=== PATIENT | female | born 1965 | race Caucasian/White ===

== ENCOUNTER 2017-04-14 14:59 | Emergency (ER) | payer BC ==
[2017-04-14 15:31] LABS: #Eosinphils 0.1 thou/uL (0.0-0.7); #Lymphocytes 1.7 thou/uL (1.20-3.40); #Monocytes 0.8 thou/uL (0.11-0.59); #Neutrophils 6.7 thou/uL (1.40-6.50); %Basophils 0.2 % (0.0-1.0); %Eosinophils 1.5 % (0.0-10.0); %Lymphocytes 18.5 % (21.0-51.0); %Monocytes 8.4 % (0.0-10.0); Hematocrit 39.6 % (36.0-47.0); Mean Platelet Volume 6.3 fL (7.4-10.4); Red Blood Cell (RBC) Count 3.94 mill/uL (4.20-5.40); White Blood Cell (WBC) Count 9.4 thou/uL (4.8-10.8)
[2017-04-14] MEDS ORDERED: ISOVUE-370 76%-LOCM 1 ML ONE (15:45)
[2017-04-14 15:55] LABS: Troponin I Less than 0.010 ng/mL (< 0.028)
[2017-04-14 15:56] LABS: ALT (SGPT) 19 U/L (8-55); AST (SGOT) 11 U/L (5-34); Alkaline Phosphatase 144 U/L (40-150); Anion Gap 13 mmol/L (10-20); BUN (Urea Nitrogen) 10 mg/dL (9.8-20.1); Bilirubin, Total 0.3 mg/dL (0.2-1.2); CK (CPK) 83 U/L (29-168); Calc. Creatinine Clearance 0 mL/min (70-130); Calcium 8.9 mg/dL (7.8-10.44); Carbon Dioxide 25 mmol/L (22-29); Chloride 105 mmol/L (98-107); Estimated GFR-MDRD 78; Globulin 3.1 g/dL (2.4-3.5); Protein, Total 6.7 g/dL (6.0-8.3)
--- NOTE | 2017-04-14 15:57 | CT ---
CT ANGIOGRAM THORAX WITH IV CONTRAST AND 3D RECONSTRUCTIONS: DATE: 04/14/17. HISTORY: Dyspnea. Cough for the past couple of weeks with swelling to the right upper extremity. History of PE last January. COMPARISON: 08/24/16. FINDINGS: No filling defects are seen in the pulmonary arteries. Thoracic aorta is normal in caliber without evidence of an aortic dissection. Lungs are clear. Right adrenal mass is again partially imaged and stable in size or appearance. Surgical clips are again seen in the right axilla as well as right breast most likely related to pos t lumpectomy changes in the right breast. There has been no interval change from prior study. IMPRESSION: 1. No CT evidence of a pulmonary embolus. 2. Stable right adrenal lesion which demonstrates attenuation coefficient suggestive of an adrenal adenoma. POS: [facility]
--- NOTE | 2017-04-14 16:42 | ULT ---
RIGHT UPPER EXTREMITY DOPPLER VENOUS ULTRASOUND 04/14/17 INDICATION: Right arm edema. TECHNIQUE: Vascular duplex with spectral analysis, color flow and shepard scale ultrasound images were obtained in the venous structures of the right upper extremity. FINDINGS: There is no evidence of DVT within the venous structures of the right upper extremity. IMPRESSION: No evidence of venous thrombosis within the right upper extremity. POS: [facility]
== END 2017-04-14 16:52 | disposition home or self-care (01) ==
LOC: ERS 14:59
DX: I89.0 Lymphedema, not elsewhere classified (principal); R05 Cough; F41.9 Anxiety disorder, unspecified; F32.9 Major depressive disorder, single episode, unspecified; F17.210 Nicotine dependence, cigarettes, uncomplicated; Z86.711 Personal history of pulmonary embolism; Z87.442 Personal history of urinary calculi; Z79.899 Other long term (current) drug therapy
CPT/HCPCS: 71275; 80053; 82553; 84484; 85025; 93005

== ENCOUNTER 2017-08-22 13:15 | Emergency (ER) | payer BC ==
[2017-08-22] MEDS ORDERED: Meclizine HCl 25 MG TAB ONE (13:36)
[2017-08-22 13:46] LABS: #Eosinphils 0.1 thou/uL (0.0-0.7); #Lymphocytes 1.9 thou/uL (1.20-3.40); #Monocytes 0.7 thou/uL (0.11-0.59); #Neutrophils 6.2 thou/uL (1.40-6.50); %Basophils 0.4 % (0.0-1.0); %Eosinophils 1.4 % (0.0-10.0); %Lymphocytes 21.1 % (21.0-51.0); %Neutrophils 69.1 % (42.0-75.0); Hemoglobin 13.8 g/dL (12.0-16.0); Mean Corpuscular HGB CONC 33.4 g/dL (32.0-36.0); Mean Corpuscular Hemoglobin 33.1 pg (27.0-31.0); Mean Corpuscular Volume 99.3 fl (81.0-99.0); Mean Platelet Volume 6.4 fL (7.4-10.4); Platelet Count 225 thou/uL (130-400); RBC Distribution Width 11.2 % (11.5-14.5); Red Blood Cell (RBC) Count 4.16 mill/uL (4.20-5.40)
[2017-08-22 13:55] LABS: Prothrombin Time 13.1 SEC (12.0-14.7)
[2017-08-22 13:56] LABS: D-Dimer Test 0.33 *mcg/mL (0.27-0.43)
--- NOTE | 2017-08-22 14:01 | CT ---
NONCONTRAST CT HEAD: Date: 08-22-17 History: Dizziness. Comparison: None available. FINDINGS: There is no evidence of a hemorrhage, acute infarction, mass effect or midline shift. Ventricular sys tem is normal in size, shape, and position. Visualized paranasal sinuses and mastoid air cells are cl ear. Calvarial structures are intact. IMPRESSION: No acute intracranial abnormality is demonstrated. POS: [facility]
[2017-08-22 14:05] LABS: ALT (SGPT) 15 U/L (8-55); AST (SGOT) 12 U/L (5-34); Albumin 3.7 g/dL (3.5-5.0); Alkaline Phosphatase 129 U/L (40-150); Anion Gap 11 mmol/L (10-20); BUN (Urea Nitrogen) 9 mg/dL (9.8-20.1); Bilirubin, Total 0.4 mg/dL (0.2-1.2); CK (CPK) 71 U/L (29-168); Calc. Creatinine Clearance 0 mL/min (70-130); Calcium 8.7 mg/dL (7.8-10.44); Carbon Dioxide 24 mmol/L (22-29); Chloride 107 mmol/L (98-107); Estimated GFR-MDRD 85; Globulin 2.8 g/dL (2.4-3.5); Glucose 100 mg/dL (70-105); Lipase 26 U/L (8-78); Potassium 3.5 mmol/L (3.5-5.1); Protein, Total 6.5 g/dL (6.0-8.3); Sodium 138 mmol/L (136-145)
[2017-08-22 14:05] LABS: CKMB 1.8 ng/mL (0-6.6); Troponin I Less than 0.010 ng/mL (< 0.028)
--- NOTE | 2017-08-22 18:25 | RAD ---
RADIOGRAPH CHEST 1 VIEW: Supine 08/22/17 HISTORY: 52-year-old female with acute chest pain and dyspnea with diaphoresis and vomiting. FINDINGS: There is no air space density or pulmonary edema. The lateral costophrenic angles are sharp. Supine positioning makes this study insensitive for pneumothorax detection. IMPRESSION: No acute pulmonary findings. jesse [] POS: [facility]
--- NOTE | 2017-09-06 15:08 | EKG ---
Test Reason : CP Blood Pressure : / mmHG Vent. Rate : 055 BPM Atrial Rate : 055 BPM P-R Int : 150 ms QRS Dur : 088 ms QT Int : 460 ms P-R-T Axes : 029 055 011 degrees QTc Int : 440 ms Sinus bradycardia Otherwise normal ECG Confirmed by HECTOR SKINNER D.O. ([id number]), subeditor RENA BANKS ([id number]) on 09/06/2017 3:07:44 PM Referred By: Confirmed By:HECTOR SKINNER D.O.
== END 2017-08-22 15:06 | disposition home or self-care (01) ==
LOC: ERS 13:15
DX: R42 Dizziness and giddiness (principal); F32.9 Major depressive disorder, single episode, unspecified; F41.9 Anxiety disorder, unspecified; F17.210 Nicotine dependence, cigarettes, uncomplicated; Z85.3 Personal history of malignant neoplasm of breast; Z87.442 Personal history of urinary calculi
CPT/HCPCS: 36415; 70450; 71045; 80053; 82550; 82553; 83690; 84484; 85025; 85379; 85610; 85730; 93005

== ENCOUNTER 2017-12-20 00:40 | Emergency (ER) | payer BC ==
[2017-12-20] MEDS ORDERED: Metoclopramide HCl 10 MG/2 ML VIAL ONE (01:40)
[2017-12-20] MEDS ORDERED: diphenhydrAMINE 50 MG/ML VIAL ONE (01:40)
[2017-12-20] MEDS ORDERED: Ketorolac Tromethamine 30 MG/ML VIAL ONE (02:59)
== END 2017-12-20 03:12 | disposition home or self-care (01) ==
LOC: ERS 00:40
DX: R51 Headache (principal); F41.9 Anxiety disorder, unspecified; F32.9 Major depressive disorder, single episode, unspecified; F17.210 Nicotine dependence, cigarettes, uncomplicated
CPT/HCPCS: 96365; 96375; J1200; J1885; J2765

== ENCOUNTER 2018-03-27 03:47 | Emergency (ER) | payer BC ==
[2018-03-27 04:35] LABS: Reflex for Review?? YES
[2018-03-27 04:36] LABS: Hemoglobin 11.1 g/dL (12.0-16.0); Mean Corpuscular HGB CONC 33.1 g/dL (32.0-36.0); Mean Corpuscular Hemoglobin 31.7 pg (27.0-31.0); Mean Corpuscular Volume 95.9 fL (78.0-98.0); Mean Platelet Volume 7.8 fL (7.4-10.4); Platelet Count 108 thou/uL (130-400); RBC Distribution Width 11.3 % (11.5-14.5); Red Blood Cell (RBC) Count 3.51 mill/uL (4.20-5.40); White Blood Cell (WBC) Count 0.5 thou/uL (4.8-10.8)
[2018-03-27] MEDS ORDERED: Ondansetron HCl/PF 4 MG/2 ML Vial ONE (04:59)
[2018-03-27] MEDS ORDERED: Metoclopramide HCl 10 MG/2 ML VIAL ONE (04:59)
[2018-03-27 05:02] LABS: ALT (SGPT) 11 U/L (8-55); AST (SGOT) 8 U/L (5-34); Alkaline Phosphatase 112 U/L (40-150); Anion Gap 13 mmol/L (10-20); BUN (Urea Nitrogen) 8 mg/dL (9.8-20.1); Bilirubin, Total 0.9 mg/dL (0.2-1.2); CK (CPK) 23 U/L (29-168); Calc. Creatinine Clearance 0 mL/min (70-130); Carbon Dioxide 23 mmol/L (22-29); Chloride 104 mmol/L (98-107); Estimated GFR-MDRD 82; Globulin 2.9 g/dL (2.4-3.5); Glucose 163 mg/dL (70-105); Lipase 5 U/L (8-78); Magnesium 1.9 mg/dL (1.6-2.6); Potassium 3.8 mmol/L (3.5-5.1); Protein, Total 6.9 g/dL (6.0-8.3); Sodium 136 mmol/L (136-145)
[2018-03-27] MEDS ORDERED: diphenhydrAMINE 50 MG/ML VIAL IVP SCH (06:00)
[2018-03-27] MEDS ORDERED: Dexamethasone 10 MG/ML VIAL ONE (07:30)
== END 2018-03-27 07:51 | disposition home or self-care (01) ==
LOC: ERS 03:47
DX: E86.0 Dehydration (principal); D70.9 Neutropenia, unspecified; R11.2 Nausea with vomiting, unspecified; Z86.711 Personal history of pulmonary embolism; F41.9 Anxiety disorder, unspecified; F32.9 Major depressive disorder, single episode, unspecified
CPT/HCPCS: 36415; 80053; 82550; 83690; 83735; 85025; 85060; 96365; 96366; 96375; J1100; J1200; J2405; J2765

== ENCOUNTER 2018-04-27 06:21 | Inpatient (IN) | payer BC ==
[2018-04-27] MEDS ORDERED: Fluconazole 100 MG TAB PO SCH (07:30)
[2018-04-27 08:01] LABS: ALT (SGPT) 11 U/L (8-55); AST (SGOT) 9 U/L (5-34); Albumin 3.7 g/dL (3.5-5.0); Alkaline Phosphatase 98 U/L (40-150); Anion Gap 13 mmol/L (10-20); BUN (Urea Nitrogen) 7 mg/dL (9.8-20.1); Bilirubin, Total 0.6 mg/dL (0.2-1.2); Calc. Creatinine Clearance 0 mL/min (70-130); Calcium 8.9 mg/dL (7.8-10.44); Carbon Dioxide 23 mmol/L (22-29); Chloride 101 mmol/L (98-107); Estimated GFR-MDRD 86; Globulin 3.1 g/dL (2.4-3.5); Glucose 138 mg/dL (70-105); Potassium 3.7 mmol/L (3.5-5.1); Protein, Total 6.8 g/dL (6.0-8.3); Sodium 133 mmol/L (136-145)
[2018-04-27 08:13] LABS: Hemoglobin 7.8 g/dL (12.0-16.0); Mean Corpuscular HGB CONC 35.1 g/dL (32.0-36.0); Mean Corpuscular Hemoglobin 32.3 pg (27.0-31.0); Mean Corpuscular Volume 92.1 fL (78.0-98.0); Mean Platelet Volume 10.9 fL (7.4-10.4); Platelet Count 41 thou/uL (130-400); RBC Distribution Width 12.6 % (11.5-14.5); Red Blood Cell (RBC) Count 2.41 mill/uL (4.20-5.40); White Blood Cell (WBC) Count 0.6 thou/uL (4.8-10.8)
[2018-04-27 08:26] LABS: Lymphocytes 72 % (21-51); MDiff Complete? YES; Monocytes 28 % (0-10); Ovalocytes SLIGHT = 2-5 cells (100X) (0-1/hpf); PLT Morphology Comment Appears Decreased; Polychromasia SLIGHT = 2-3 cells (100X) (0-2/hpf)
--- NOTE | 2018-04-27 09:31 | RAD ---
PA AND LATERAL CHEST: HISTORY: Cough. COMPARISON: 08/24/2016 study. FINDINGS: Heart size and mediastinum are within normal limits. The lungs are clear of infiltrates. Left-sided MediPort catheter is seen. The catheter tip overlies the superior vena cava. IMPRESSION: No active intrathoracic disease. POS: [facility]
[2018-04-27 09:38] LABS: Bilirubin Negative (Negative); Blood, Urine Negative (Negative); Clarity CLEAR (Clear); Glucose, Urine (Dipstick) Negative (Negative); Leukocyte Negative (Negative); Nitrite Negative (Negative); Protein, Urine (Dipstick) Negative (Neg-Trace); Specific Gravity, Urine 1.007 (1.002-1.036); Urobilinogen 0.2 mg/dL (0.2-1.0); pH, Urine 6.5 (5.0-9.0)
[2018-04-27] MEDS ORDERED: Cefepime 2 GM VIAL ONE (11:30)
--- NOTE | 2018-04-27 11:43 | PDOC.EVN ---
Attending Addendum - Attending Addendum Date/Time: 04/27/18 2768 I personally evaluated the patient and discussed the management with Dr. Moreno/ Juan. I agree with the History, Examination, Assessment and Plan documented in the electronic H&P with any addition or exceptions noted below. Patient with history of breast cancer currently on chemotherapy with MDA presenting with increasing fatigue and malaise as well as headache, nasal congestion, rhinorrhea, productive cough that has been increasing over the last 1 week. Also reports chronic R ear drainage that has been ongoing since chemo started but worse over the last few days. She denies any documented fevers at home. Also complains of diffuse mouth soreness. On exam, she has some purulence coming from her R ear canal and some serous drainage from L side. Some opacities behind her b/l TMs. Lungs clear. Labs show profound leukopenia with near nonexistant neutrophil count. Other labs do not reveal any major abnormalities. RUPESH spoke with patient's oncologist who recommended at minimum a 24 hour observation for neutropenic fever and basic eval for infectious source. Patient will be admitted to Oncology unit with neutropenic precautions. Cultures of ear drainage obtained. No other major infectious source identified at this time. Will swab for flu and possibly other viral respiratory pathogens. Continue broad spectrum abx at this time. Fluid hydrate as she has had poor PO intake. Treat for thrush as needed and can consider Magic mouthwash for relief. Will monitor today and possibly discuss again with her oncologist tomorrow pending clinical course and workup.
--- NOTE | 2018-04-27 11:54 | PDOC.FPRHP ---
- History of Present Illness Chief Complaint: "not feeling well" History of Present Illness: 53 yo F with R breast CA currently receiving chemotherapy presents to ED for "not feeling well." She last underwent chemotherapy 10 days ago but on Monday did not feel well, had nausea, emesis, diarrhea, b/l ear pain with red tinted drainage. She says she typically experiences intermittent episodes with these symptoms ever since her first chemo session two months ago. However, with symptoms progressively worsening, she was worried which prompted her visit to the ED. Also endorses URIBE, rhinorrhea, cough; denies vision changes, fever. Has had dec po intake due to nausea and painful mouth blisters. This is the second time she has been diagnosed with R breast CA, the first time in 2014 requiring R breast mastectomy. The second recurrence required chemotherapy which she is currently undertaking. She sees a heme oncologist, Dr. Sanchez, at [facility] who was contacted from the ED and advised admitting for observation. ED Course: Started on Vancomycin & Cefepime. - Allergies/Adverse Reactions Allergies Allergy/AdvReac Type Severity Reaction Status Date / Time codeine Allergy Verified 04/27/18 14:24 - Home Medications Medication Instructions Recorded Confirmed Type HYDROcodone Bit/APAP 5/325 [[place]] 1 tab PO DAILY PRN 01/14/16 04/27/18 History traMADol HCl [Tramadol HCl] 25 mg PO DAILY PRN 01/14/16 04/27/18 History Escitalopram Oxalate [Lexapro] 10 mg PO DAILY 04/27/18 04/27/18 History Metoprolol Succinate [Toprol XL] 04/27/18 History Temazepam [Restoril] 04/27/18 History - History PMHx: Breast CA,HTN, Depression, Anxiety, renal disease, kdiney stones, PE in 2016 PSHx: right breast lumpectomy, FHx:unrmk Social: Denies smoking, etoh, illicit drug use - Review of Systems General: reports: weight/appetite/sleep changes. denies: fever/chills, night sweats Eyes: denies: eye pain, vision changes ENT: reports: nasal congestion, rhinorrhea Respiratory: reports: cough. denies: congestion, shortness of breath, exercise intolerance Cardiovascular: denies: chest pain, palpitation Gastrointestinal: reports: nausea, vomiting, diarrhea, constipation, abdominal pain. denies: GI bleeding Genitourinary: denies: dysuria, polyuria, discharge Skin: denies: rashes, lesions, jaundice Musculoskeletal: reports: pain Neurological: reports: weakness. denies: seizure Psychological: reports: anxiety - Vital signs BP: [115/80] HR: [73] RR: [18] Tmax: 98 Pox: [97]% on [RA] Wt: 93[] - Physical Exam Constitutional: awake, alert and oriented -Constitutional: mild distress from ear pain HEENT: normocephalic and atraumatic, PERRLA, EOMI -HEENT: sores at the corners of the mouth, no purulent drainage. white plaques on surface of tongue. ears: R ear purulent drainage, with TM opacities, erythema of canal. Neck: supple, trachea midline Chest: no-tender to palpation, no lesions Heart: RRR, normal S1/S2 Lungs: CTAB, no respiratory distress, no wheezing -Lungs: dec air movement Abdomen: soft, non-tender, bowel sounds present, no masses/distention Musculoskeletal: normal tone, ROM grossly normal Neurological: no focal deficit, CN II-XII intact Skin: no rash/lesions, no jaundice -Skin: dec skin turgor Heme/Lymphatic: no unusual bruising or bleeding, no purpura Psychiatric: good judgment and insight -Psychiatric: anxious FMR H&P: Results - Labs Result Diagrams: 04/27/18 07:26 04/27/18 07:26 Lab results: WBC 0.6 thou/uL (4.8-10.8) L* 04/27/18 07:26 Hgb 7.8 g/dL (12.0-16.0) L 04/27/18 07:26 Hct 22.2 % (36.0-47.0) L 04/27/18 07:26 MCV 92.1 fL (78.0-98.0) 04/27/18 07:26 Plt Count 41 thou/uL (130-400) L 04/27/18 07:26 Sodium 133 mmol/L (136-145) L 04/27/18 07:26 Potassium 3.7 mmol/L (3.5-5.1) 04/27/18 07:26 Chloride 101 mmol/L (98-107) 04/27/18 07:26 Carbon Dioxide 23 mmol/L (22-29) 04/27/18 07:26 BUN 7 mg/dL (9.8-20.1) L 04/27/18 07:26 Creatinine 0.71 mg/dL (0.6-1.1) 04/27/18 07:26 Glucose 138 mg/dL (70-105) H 04/27/18 07:26 Calcium 8.9 mg/dL (7.8-10.44) 04/27/18 07:26 Total Bilirubin 0.6 mg/dL (0.2-1.2) 04/27/18 07:26 AST 9 U/L (5-34) 04/27/18 07:26 ALT 11 U/L (8-55) 04/27/18 07:26 Alkaline Phosphatase 98 U/L (40-150) 04/27/18 07:26 Serum Total Protein 6.8 g/dL (6.0-8.3) 04/27/18 07:26 Albumin 3.7 g/dL (3.5-5.0) 04/27/18 07:26 Urine Ketones Negative mg/dL (Negative) 04/27/18 09:20 Urine Blood Negative (Negative) 04/27/18 09:20 Urine Nitrite Negative (Negative) 04/27/18 09:20 Ur Leukocyte Esterase Negative (Negative) 04/27/18 09:20 - Radiology Interpretation Chest x-ray Status: image reviewed by me, report reviewed by me FMR H&P: A/P - Problem List (1) Neutropenia associated with infection Current Visit: Yes Status: Acute Code(s): D70.3 - NEUTROPENIA DUE TO INFECTION (2) Oral thrush Current Visit: Yes Status: Acute Code(s): B37.0 - CANDIDAL STOMATITIS (3) Angular cheilosis Current Visit: Yes Status: Acute Code(s): K13.0 - DISEASES OF LIPS (4) Hypertension Current Visit: Yes Status: Acute Code(s): I10 - ESSENTIAL (PRIMARY) HYPERTENSION (5) Anxiety Current Visit: No Status: Chronic Code(s): F41.9 - ANXIETY DISORDER, UNSPECIFIED (6) Depression Current Visit: No Status: Chronic Code(s): F32.9 - MAJOR DEPRESSIVE DISORDER , SINGLE EPISODE, UNSPECIFIED (7) S/P lumpectomy, right breast Current Visit: No Status: Chronic Code(s): Z98.89 - OTHER SPECIFIED POSTPROCEDURAL STATES * DO NOT USE * - Plan 53 yo with R breast CA on chemotherapy with neutropenic infection Neutropenic infection -ANC 0, likely from chemotherapy treatments -Likely source of infection otitis media/externa -Continue workup for source of infectoin-pending ear fluid cx, blood cx, procal -Will also obtain respiratory panel to assess for viral pulmonary infxn due to URI sxs -Will cover with empiric vanc & cefepime while pending cultures -Admit to onc-placed on neutropenic diet, neutropenic isolation precautions -Will monitor vitals q4HR, tylenol for fever -daily CBC, will obtain procal -[place] for pain -Will touch base with oncologist Dr. Sanchez Oral thrush -Likely from immunosuppresion/pancytopenia -Magic mouthwash with Nystatin; oral fluconazole -1L bolus & mIVF due to dec po intake Angular chelosis -see above HTN -Stable -Continue home metoprolol Breast CA s/p radical lumpectomy with current chemotherapy -Next chemotherapy treatment next Monday -see above Pancytopenia 2/2 immunosuppresive chemotherapy -continue to monitor -will hold lovenox due to Plt of 41 Anxiety/Depression -home meds dvt ppx: SCDs gi ppx: protonix Discussed with Dr. Garcia FMR H&P: Upper Level - Pertinent history 53 yo F w/hx of R breast cancer currently being treated with chemo complains of cough, nasal congestion, discharge from both ears, n/v and general malaise for the past week. Drainage is worst on the R. She denies associated fever. She is currently getting chemo weekly each Monday. ERMD spoke with onc in the [place], Dr. Sanchez, who recommended observation, work up for neutropenic fever, and empiric abx. ROS as noted above, for complete ROS see recording studio internship H&P CXR negative - Pertinent findings Gen A&O x3 HEENT: white purulent dc from both ears. No redness of TM or ear canal. No TTP over mastoid process. Mouth has vesicular lesions with white patches on buccal mucosa CV RRR, no murmur Resp CTA Abd non tender, bs x4 For vitals see Bar Attendant H&P - Plan Date/Time: 04/27/18 1154 I, Alexander Martinez DO, have evaluated this patient and agree with findings/plan as outlined by recording studio internship resident. Pertinent changes/additions are listed here. 1. Pancytopenia with associated inner ear infection - Absolute ANC is 0 - admit to onc obs. - Blood, urine, and ear discharge swabs pending. Swab for flu and resp panel - Monitor for fever - Continue IV Vanc and cefepime - Monitor Hb and plt count 2. Oral thrush - Continue nystatin swish and spit - magic mouthwash prn - IVF at 135 ml/hr as pt has poor oral intake 3. Breast Cancer - will continue to communicate with out of town onc. Pt currently in a chemo cycle Code Full Diet Neutropenic diet PPx SCD Attending Addendum - Attending Addendum Date/Time: 04/27/18 5167 I personally evaluated the patient and discussed the management with Dr. Moreno/ uJan. I agree with the History, Examination, Assessment and Plan documented above with any addition or exceptions noted below. see event note dated 04/27/18 for further attending details.
[2018-04-27] MEDS ORDERED: Vancomycin HCl 1.5 GM in Sodium Chloride 0.9% 250 ML 300 ML IVPB SCH (12:00)
[2018-04-27] MEDS ORDERED: Lactated Ringer's 1,000 ML IV SCH (13:03)
[2018-04-27] MEDS ORDERED: Acetaminophen 325 MG TAB PO PRN ×2 (13:03)
[2018-04-27] MEDS ORDERED: Ondansetron ODT 4 MG TAB PO PRN (13:03)
[2018-04-27] MEDS ORDERED: Loperamide HCl 2 MG CAP PO PRN (13:03)
[2018-04-27] MEDS ORDERED: Aluminum & Magnesium Hydroxide 60 ML, diphenhydrAMINE 150 MG, Lidocaine 2% Viscous Solu... SSW PRN (13:03)
[2018-04-27] MEDS ORDERED: Temazepam 15 MG CAP PO PRN (13:10)
[2018-04-27] MEDS: HYDROcodone/Acetaminophen 5/325 mg Tablet PO PRN ×3 (14:05→23:49)
[2018-04-27] MEDS: Lactated Ringer's 1,000 ML IV SCH ×2 (14:05→22:38)
[2018-04-27 15:03] VITALS: BMI 36.4
[2018-04-27] MEDS ORDERED: Prochlorperazine Maleate 5 MG TAB PO PRN (18:06)
[2018-04-27] MEDS: Cefepime 2 GM in Sodium Chloride 0.9% 100 ML IVPB SCH (22:32)
[2018-04-27] MEDS: Aluminum & Magnesium Hydroxide 60 ML, diphenhydrAMINE 150 MG, Lidocaine 2% Viscous Solu... SSW SCH (22:36)
[2018-04-28] MEDS: Vancomycin HCl 1.5 GM in Sodium Chloride 0.9% 250 ML 300 ML IVPB SCH ×2 (01:48→13:40)
[2018-04-28] MEDS: HYDROcodone/Acetaminophen 5/325 mg Tablet PO PRN ×5 (04:10→22:59)
[2018-04-28] MEDS: Cefepime 2 GM in Sodium Chloride 0.9% 100 ML IVPB SCH ×4 (04:12→22:54)
--- NOTE | 2018-04-28 05:18 | PDOC.FM ---
- Subjective Subjective: Ms. Kwok reports she is feeling better this morning. Continued b/l ear drainage, clear. R ear pain well controlled with pain meds. Notes thrush has improved greatly. Patient reports chills overnight as like when having a fever. - Objective MAR Reviewed: Yes Vital Signs & Weight: Vital Signs (12 hours) Temp Pulse Resp BP Pulse Ox 04/28/18 04:00 98.6 F 69 16 119/61 94 L 04/28/18 00:18 98.6 F 75 16 116/56 L 95 04/27/18 20:00 94 L 04/27/18 19:40 99.7 F H 99 20 115/58 L 94 L Weight Weight 93.259 kg I&O: 04/26/18 04/27/18 04/28/18 06:59 06:59 06:59 Intake Total 1959 Result Diagrams: 04/28/18 05:28 04/28/18 05:28 <Yareli Sanchez - Last Filed: 04/28/18 07:36> - Objective Vital Signs & Weight: Vital Signs (12 hours) Temp Pulse Resp BP Pulse Ox 04/28/18 07:28 98.4 F 69 16 112/60 97 04/28/18 04:00 98.6 F 69 16 119/61 94 L 04/28/18 00:18 98.6 F 75 16 116/56 L 95 Weight Weight 93.259 kg I&O: 04/27/18 04/28/18 04/29/18 06:59 06:59 06:59 Intake Total 1959 Result Diagrams: 04/28/18 05:28 04/28/18 05:28 <Jameel Cortes - Last Filed: 04/28/18 10:01> Phys Exam - Physical Examination Constitutional: NAD HEENT: PERRLA, moist MMs oral thrush Respiratory: no wheezing, no rhonchi, clear to auscultation bilateral Cardiovascular: RRR, no significant murmur Gastrointestinal: soft, non-tender, positive bowel sounds Musculoskeletal: no edema Neurological: non-focal, moves all 4 limbs Psychiatric: normal affect Skin: normal turgor <Yareli Sanchez - Last Filed: 04/28/18 07:36> Dx/Plan (1) Neutropenia associated with infection Code(s): D70.3 - NEUTROPENIA DUE TO INFECTION Status: Acute (2) Oral thrush Code(s): B37.0 - CANDIDAL STOMATITIS Status: Acute (3) Hypertension Code(s): I10 - ESSENTIAL (PRIMARY) HYPERTENSION Status: Acute (4) Angular cheilosis Code(s): K13.0 - DISEASES OF LIPS Status: Acute (5) Breast cancer Status: Acute (6) S/P lumpectomy, right breast Code(s): Z98.89 - OTHER SPECIFIED POSTPROCEDURAL STATES * DO NOT USE * Status : Chronic (7) S/P lymph node biopsy Code(s): Z98.89 - OTHER SPECIFIED POSTPROCEDURAL STATES * DO NOT USE * Status : Chronic (8) Anxiety Code(s): F41.9 - ANXIETY DISORDER, UNSPECIFIED Status: Chronic (9) Depression Code(s): F32.9 - MAJOR DEPRESSIVE DISORDER, SINGLE EPISODE, UNSPECIFIED Status : Chronic - Plan Plan: 53 yo with R breast CA on chemotherapy with neutropenic infection Pancytopenia associated with inner ear infection -ANC 0, likely from chemotherapy treatments - Monitor VS for neutropenic fever. Highest has been 99.7 @ 1700 last night. May not be able to mount full fever d/t immunosuppression. -Likely source of infection otitis media/externa -Pending ear fluid cx, blood cx -Respiratory panel negative -Continue vanc & cefepime (04/27) while pending cultures -neutropenic isolation precautions -daily CBC -[place] prn pain -Will touch base with oncologist Dr. Sanchez Oral thrush -Likely from immunosuppresion/pancytopenia -Magic mouthwash with Nystatin; oral fluconazole -IVF LR @ 135 Angular chelosis -see above HTN -Stable -Continue home metoprolol Breast CA s/p radical lumpectomy with current chemotherapy -Next chemotherapy treatment next Monday -see above Pancytopenia 2/2 immunosuppresive chemotherapy -continue to monitor -will hold lovenox due to Plt of 41 Anxiety/Depression -home meds dvt ppx: SCDs gi ppx: protonix <Yareli Sanchez - Last Filed: 04/28/18 07:36> (1) Neutropenia associated with infection Code(s): D70.3 - NEUTROPENIA DUE TO INFECTION Status: Acute (2) Oral thrush Code(s): B37.0 - CANDIDAL STOMATITIS Status: Acute (3) Angular cheilosis Code(s): K13.0 - DISEASES OF LIPS Status: Acute (4) Hypertension Code(s): I10 - ESSENTIAL (PRIMARY) HYPERTENSION Status: Acute (5) Anxiety Code(s): F41.9 - ANXIETY DISORDER, UNSPECIFIED Status: Chronic (6) Depression Code(s): F32.9 - MAJOR DEPRESSIVE DISORDER, SINGLE EPISODE, UNSPECIFIED Status : Chronic (7) S/P lumpectomy, right breast Code(s): Z98.89 - OTHER SPECIFIED POSTPROCEDURAL STATES * DO NOT USE * Status : Chronic <Jameel Cortes - Last Filed: 04/28/18 10:01> Attending Addendum - Attending Addendum Date/Time: 04/28/18 1000 I personally evaluated the patient and discussed the management with Dr. Sanchez. I agree with the History, Examination, Assessment and Plan documented above with any addition or exceptions noted below. Patient here for suspected infection in the setting of severe neutropenia and leukopenia. Will continue broad spectrum abx and await cx results. Will discuss case with patient's oncologist today and likely transfuse PRBCs due to worsening anemia in setting of pancytopenia from chemotherapy. No true fever since admission. <Jameel Cortes - Last Filed: 04/28/18 10:01>
[2018-04-28 06:45] LABS: White Blood Cell (WBC) Count 0.9 thou/uL (4.8-10.8)
[2018-04-28 07:04] LABS: Anion Gap 10 mmol/L (10-20); BUN (Urea Nitrogen) 4 mg/dL (9.8-20.1); Calc. Creatinine Clearance 167 mL/min (70-130); Calcium 8.4 mg/dL (7.8-10.44); Carbon Dioxide 23 mmol/L (22-29); Chloride 108 mmol/L (98-107); Estimated GFR-MDRD Greater than 90; Glucose 114 mg/dL (70-105); Potassium 3.6 mmol/L (3.5-5.1); Sodium 137 mmol/L (136-145)
[2018-04-28 07:36] LABS: Band 4 % (5-11); Hemoglobin 6.4 g/dL (12.0-16.0); Lymphocytes 88 % (21-51); MDiff Complete? YES; Mean Corpuscular HGB CONC 36.3 g/dL (32.0-36.0); Mean Corpuscular Hemoglobin 33.8 pg (27.0-31.0); Mean Corpuscular Volume 93.1 fL (78.0-98.0); Mean Platelet Volume 10.8 fL (7.4-10.4); Metamyelocyte 2 % (0-0); Monocytes 2 % (0-10); Neutrophil 4 % (42-75); PLT Morphology Comment Appears Decreased; Platelet Count 42 thou/uL (130-400); RBC Distribution Width 12.7 % (11.5-14.5); Red Blood Cell (RBC) Count 1.88 mill/uL (4.20-5.40)
[2018-04-28] MEDS: Fluconazole 100 MG TAB PO SCH (08:57)
[2018-04-28] MEDS: Escitalopram Oxalate 10 mg Tablet PO SCH (08:57)
[2018-04-28] MEDS: Aluminum & Magnesium Hydroxide 60 ML, diphenhydrAMINE 150 MG, Lidocaine 2% Viscous Solu... SSW SCH ×4 (08:57→21:00)
[2018-04-28] MEDS ORDERED: Enoxaparin Sodium 40 MG/0.4 ML SYRINGE SC SCH (09:00)
[2018-04-28] MEDS: Lactated Ringer's 1,000 ML IV SCH ×2 (09:02→22:50)
[2018-04-28 23:33] LABS: Vancomycin, Trough 18.6 ug/mL
[2018-04-29] MEDS: Vancomycin HCl 1.5 GM in Sodium Chloride 0.9% 250 ML 300 ML IVPB SCH (01:00)
[2018-04-29] MEDS: Lactated Ringer's 1,000 ML IV SCH ×3 (01:29→04:30)
[2018-04-29] MEDS: Cefepime 2 GM in Sodium Chloride 0.9% 100 ML IVPB SCH (04:22)
--- NOTE | 2018-04-29 05:25 | PDOC.FM ---
- Subjective Subjective: Ms. Kwok reports feeling even better today. Says b/l ear draining is decreasing. Denies fever/chills. PO intake has improved and she is tolerating it well. Says oncology saw her yesterday. - Objective MAR Reviewed: Yes Vital Signs & Weight: Vital Signs (12 hours) Temp Pulse Pulse Resp BP BP Pulse Ox 04/29/18 04:00 98.5 F 65 18 110/59 L 95 04/28/18 23:32 98.9 F 65 18 113/69 97 04/28/18 23:00 65 16 113/69 97 04/28/18 20:00 99 04/28/18 19:57 99.2 F 69 18 130/61 99 04/28/18 18:50 98.9 F 78 16 116/78 98 04/28/18 18:27 99.0 F 77 16 120/68 Weight Admit Weight 92.986 kg Weight 93.259 kg Most Recent Monitor Data NIBP 120/68 I&O: 04/27/18 04/28/18 04/29/18 06:59 06:59 06:59 Intake Total 1959 4049 Balance 1959 4049 Result Diagrams: 04/29/18 07:41 04/29/18 07:41 <Yareli Sanchez - Last Filed: 04/29/18 09:52> - Objective Vital Signs & Weight: Vital Signs (12 hours) Temp Pulse Pulse Resp BP BP Pulse Ox 04/29/18 08:25 98.3 F 64 16 128/55 L 98 04/29/18 04:00 98.5 F 65 18 110/59 L 95 04/28/18 23:32 98.9 F 65 18 113/69 97 04/28/18 23:00 65 16 113/69 97 Weight Admit Weight 92.986 kg Weight 93.259 kg Most Recent Monitor Data NIBP 120/68 I&O: 04/28/18 04/29/18 04/30/18 06:59 06:59 06:59 Intake Total 1959 Result Diagrams: 04/29/18 07:41 04/29/18 07:41 <Jameel Cortes - Last Filed: 04/29/18 09:59> Phys Exam - Physical Examination Constitutional: NAD Respiratory: no wheezing, no rhonchi, clear to auscultation bilateral Cardiovascular: RRR, no significant murmur Gastrointestinal: soft, non-tender, no distention, positive bowel sounds Musculoskeletal: no edema Neurological: non-focal, moves all 4 limbs Psychiatric: normal affect Skin: normal turgor, cap refill <2 seconds <Yareli Sanchez - Last Filed: 04/29/18 09:52> Dx/Plan (1) Neutropenia associated with infection Code(s): D70.3 - NEUTROPENIA DUE TO INFECTION Status: Acute (2) Oral thrush Code(s): B37.0 - CANDIDAL STOMATITIS Status: Acute (3) Hypertension Code(s): I10 - ESSENTIAL (PRIMARY) HYPERTENSION Status: Acute (4) Angular cheilosis Code(s): K13.0 - DISEASES OF LIPS Status: Acute (5) Breast cancer Status: Acute (6) S/P lumpectomy, right breast Code(s): Z98.89 - OTHER SPECIFIED POSTPROCEDURAL STATES * DO NOT USE * Status : Chronic (7) S/P lymph node biopsy Code(s): Z98.89 - OTHER SPECIFIED POSTPROCEDURAL STATES * DO NOT USE * Status : Chronic (8) Anxiety Code(s): F41.9 - ANXIETY DISORDER, UNSPECIFIED Status: Chronic (9) Depression Code(s): F32.9 - MAJOR DEPRESSIVE DISORDER, SINGLE EPISODE, UNSPECIFIED Status : Chronic - Plan Plan: 53 yo with R breast CA on chemotherapy with neutropenic infection Pancytopenia associated with inner ear infection -ANC 0--> 504 today -Afebrile since hospitalization -Likely source of infection otitis media/externa -Pending ear fluid cx-->gram negative rods. Sensitivity pending. Blood cx-NGTD -Respiratory panel negative -Continue vanc & cefepime (04/27)--> will transition to PO levaquin for outpatient treatment -neutropenic isolation precautions -daily CBC -[place] prn pain -Discussed with oncologist Dr. Sanchez - recommended oncology consult. - Consulted oncology, Dr. Berman 04/28. Awaiting further recommendations. Oral thrush -Likely from immunosuppresion/pancytopenia -Magic mouthwash with Nystatin; oral fluconazole -IVF LR @ 135 Angular chelosis -see above HTN -Stable -Continue home metoprolol Breast CA s/p radical lumpectomy with current chemotherapy -Next chemotherapy treatment next Monday -see above Pancytopenia 2/2 immunosuppresive chemotherapy -continue to monitor -will hold lovenox due to Plt of 41-->47 Anxiety/Depression -home meds dvt ppx: SCDs gi ppx: protonix Dispo: plan for possible d/c today <Yareli Sanchez - Last Filed: 04/29/18 09:52> (1) Neutropenia associated with infection Code(s): D70.3 - NEUTROPENIA DUE TO INFECTION Status: Acute (2) Oral thrush Code(s): B37.0 - CANDIDAL STOMATITIS Status: Acute (3) Angular cheilosis Code(s): K13.0 - DISEASES OF LIPS Status: Acute (4) Hypertension Code(s): I10 - ESSENTIAL (PRIMARY) HYPERTENSION Status: Acute (5) Anxiety Code(s): F41.9 - ANXIETY DISORDER, UNSPECIFIED Status: Chronic (6) Depression Code(s): F32.9 - MAJOR DEPRESSIVE DISORDER, SINGLE EPISODE, UNSPECIFIED Status : Chronic (7) S/P lumpectomy, right breast Code(s): Z98.89 - OTHER SPECIFIED POSTPROCEDURAL STATES * DO NOT USE * Status : Chronic <Jameel Cortes - Last Filed: 04/29/18 09:59> Attending Addendum - Attending Addendum Date/Time: 04/29/18 0958 I personally evaluated the patient and discussed the management with Dr. Sanchez. I agree with the History, Examination, Assessment and Plan documented above with any addition or exceptions noted below. Patient feeling improved today s/p transfusion. She has been afebrile, and her neutropenia is significantly improved this morning. Cultures negative to date. Awaiting further recs from Oncology today but if they are ok with her discharge then she can likely be discharged today on outpatient abx therapy and follow up with her Oncologist on Monday. <Jameel Cortes - Last Filed: 04/29/18 09:59>
[2018-04-29 08:22] LABS: Anion Gap 8 mmol/L (10-20); BUN (Urea Nitrogen) 4 mg/dL (9.8-20.1); Calc. Creatinine Clearance 161 mL/min (70-130); Calcium 8.3 mg/dL (7.8-10.44); Carbon Dioxide 28 mmol/L (22-29); Chloride 107 mmol/L (98-107); Estimated GFR-MDRD Greater than 90; Glucose 103 mg/dL (70-105); Potassium 3.6 mmol/L (3.5-5.1); Sodium 139 mmol/L (136-145)
[2018-04-29 08:39] VITALS: BP 128/55; TEMP 98.3
[2018-04-29 09:24] LABS: Hemoglobin 9.1 g/dL (12.0-16.0); Mean Corpuscular HGB CONC 35.5 g/dL (32.0-36.0); Mean Corpuscular Volume 90.3 fL (78.0-98.0); Mean Platelet Volume 10.2 fL (7.4-10.4); Platelet Count 47 thou/uL (130-400); Red Blood Cell (RBC) Count 2.84 mill/uL (4.20-5.40); White Blood Cell (WBC) Count 1.8 thou/uL (4.8-10.8)
[2018-04-29 09:35] LABS: Band 18 % (5-11); Lymphocytes 35 % (21-51); MDiff Complete? YES; Metamyelocyte 4 % (0-0); Monocytes 30 % (0-10); Neutrophil 10 % (42-75); Nucleated RBC 2 % (0); PLT Morphology Comment Appears Decreased
[2018-04-29] MEDS: Fluconazole 100 MG TAB PO SCH (09:42)
[2018-04-29] MEDS: Escitalopram Oxalate 10 mg Tablet PO SCH (09:42)
[2018-04-29] MEDS: Aluminum & Magnesium Hydroxide 60 ML, diphenhydrAMINE 150 MG, Lidocaine 2% Viscous Solu... SSW SCH (09:43)
--- NOTE | 2018-04-30 14:50 | DIS-2 ---
DATE OF ADMISSION: 04/27/2018 DATE OF DISCHARGE: 04/29/2018 RESIDENT: Yareli Sanchez DO. ADMITTING ATTENDING: Jameel Cortes MD DISCHARGE ATTENDING: Jameel Cortes MD CONSULTATIONS: Oncology, Dr. Berman. PROCEDURES: Chest x-ray on 04/27/2018 showed no active intrathoracic disease. PRIMARY DIAGNOSES: 1. Pancytopenia associated with inner ear infection in setting of chemotherapy. 2. Oral thrush. 3. Angular cheilosis. SECONDARY DIAGNOSES: 1. Hypertension. 2. Breast cancer, status post radical lumpectomy with current chemotherapy. DISCHARGE MEDICATIONS: 1. Bowdon 5/325 one-tab p.o. daily p.r.n. 2. Tramadol 25 mg p.o. daily p.r.n. 3. Lexapro 10 mg p.o. daily. 4. Restoril 15 mg p.o. daily. 5. Metoprolol succinate 25 mg p.o. daily. 6. Compazine 10 mg p.o. q.6 hours p.r.n. 7. Protonix 40 mg p.o. daily. 8. Zofran 8 mg p.o. p.r.n. 9. Levaquin 500 mg p.o. daily for 7 days. DISCONTINUED MEDICATIONS: None. HISTORY OF PRESENT ILLNESS: A 53-year-old female with history of right breast cancer currently receiving chemotherapy cared for by Dr. Sanchez at [facility] presents to the ED for chief complaint of not feeling well. Last chemotherapy was 10 days prior. Patient did not feel well, had nausea, vomiting , diarrhea, and bilateral ear pain with drainage. Patient has decreased p.o. intake as well. Patient was admitted and was started on vancomycin and cefepime. Respiratory panel was negative. Blood and ear drainage cultures were taken. At time of dictation, blood culture showed no growth to date and ear drainage shows Gram-negative rods. We will follow up on these results when final. Additionally, patient's white blood cell count was 0.6, which improved to 1.8 at time of discharge. Initial ANC was 0. ANC at time of discharge 504. Platelets 47 at discharge. Hemoglobin was 6.4 on 04/28/2018, patient was transfused 2 units packed red blood cells. Repeat hemoglobin on 04/29/2018 was 9.1. UA negative. Case was discussed with oncologist at [facility]. Oncology, Dr. Berman was consulted, though he was told that patient do not wish to see him. At time of discharge, patient had clinically improved greatly , was tolerating p.o. intake well. Patient did not have a fever during the entire hospitalization. Case discussed with Dr. Berman and patient is stable for discharge with p.o. medication for 7 days to continue treating the ear infection. Patient already has appointment scheduled with her oncologist on Monday. DISPOSITION: Stable. DISCHARGE INSTRUCTIONS: 1. Location: Home. 2. Diet: Regular. 3. Activity: As tolerated. 4. Follow up with Dr. Sacnhez, Oncologist at [facility] on Monday. [facility]
== END 2018-04-29 11:08 | disposition home or self-care (01) | DRG 809 ==
LOC: ERS 06:21 → ONC 11:00
PROVIDERS: ADMIT Student in an Organized Health Care Education/Training Program; ATTEND Student in an Organized Health Care Education/Training Program
PROC: 30233N1 Transfusion of Nonautologous Red Blood Cells into Peripheral Vein, Percutaneous Approach (ICD-10-PCS; principal; 2018-04-28)
DX: D70.3 Neutropenia due to infection (principal); B37.0 Candidal stomatitis; K13.0 Diseases of lips; I10 Essential (primary) hypertension; F41.9 Anxiety disorder, unspecified; F32.9 Major depressive disorder, single episode, unspecified; Z90.11 Acquired absence of right breast and nipple; C50.911 Malignant neoplasm of unspecified site of right female breast; H83.09 Labyrinthitis, unspecified ear; Z92.21 Personal history of antineoplastic chemotherapy
CPT/HCPCS: 36415; 36430; 71046; 80048; 80053; 80202; 81003; 84145; 85025; 86850; 86900; 86901; 87040; 87070; 87077; 87186; 87633; 96361; 96365; 96375; J0692; J1642; J3370; J7050; P9016

== ENCOUNTER 2019-04-25 07:37 | Emergency (ER) | payer BC ==
--- NOTE | 2019-04-25 08:38 | RAD ---
3 views lumbar spine: 04/25/2019 COMPARISON: None HISTORY: Injury FINDINGS: There is a mild anterior wedge compression fracture with ventral cortical buckling of the L 1 vertebral body demonstrating mild anterior loss of vertebral body height in the 10-15% range. No anterolisthesis or retrolisthesis. Mild lower lumbar spine facet hypertrophy. IMPRESSION: Findings suggesting a mild anterior wedge compression fracture of L1. Recommend further a ssessment via CT.
[2019-04-25] MEDS ORDERED: HYDROcodone/Acetaminophen 7.5/325 mg Tablet ONE ×2 (09:07→12:14)
--- NOTE | 2019-04-25 10:29 | CT ---
CT LUMBAR SPINE WITHOUT CONTRAST: HISTORY: Patient fell one hour to arrival. Pain. COMPARISON: None. FINDINGS: Indeterminate hypodensity involving the right adrenal gland measuring 2.6 x 1.6 cm with an attenuatio n coefficient of 1 Hounsfield unit. Correlation made with CT abdomen/pelvis 04/16/2016 demonstrates a benign adrenal adenoma. No retroperitoneal mass, lymphadenopathy or hematoma. Normal caliber aorta. Atherosclerosis. No peria ortic fat stranding. No evidence of obstructive uropathy. Five lumbar type vertebrae. Lumbar spine vertebral body heights are maintained from L2 through L5. Th ere is no spondylolisthesis or spondylolysis. There is evidence of chronic loss of vertebral body height along the superior endplate of L1 with josselyn dence of sclerosis. There appear to be acute lucencies involving the superior endplate of L1, suggesting an acute upon chronic compression fractur e. There is minimal paraspinal post traumatic change. Throughout the lumbar spine, no evidence of high-grade central canal stenosis or high-grade neural fo raminal narrowing. L4-L5: Mild central canal stenosis secondary to broad-based disc bulge, ligamentum flavum thickening and facet hypertrophy. L5-S1: Disc material does make contact upon the traversing left and right S1 nerve root without signi ficant mass effect or obscuration. IMPRESSION: 1. Acute on chronic compression fracture at L1 without significant retropulsion. 2. No significant central canal stenosis or significant neural foraminal narrowing throughout the lum bar spine. Degenerative changes at L4-L5 and L5-S1 as described above. Transcribed Date/Time: 04/25/2019 10:34 AM
--- NOTE | 2019-04-25 10:36 | MRI ---
MR OF THE THORACIC SPINE WITHOUT CONTRAST INDICATION: History of fall with severe back pain TECHNIQUE: Multiplanar multisequence MR images were obtained of the thoracic spine without contrast. Spine count series was provided. COMPARISON: CT of the lumbar spine dated April 25, 2019 at 9:43 AM FINDINGS: Bone marrow signal intensity: There is acute superior central endplate compression fracture involving the L1 vertebral body with approximately 25% loss of height. No additional acute fracture is evident. Spinal alignment: Normal Spinal cord: Normal signal intensity and contour. Paravertebral soft tissues: Normal Vertebral levels: T1-T2: No appreciable central canal or neural foraminal narrowing is evident. T2-T3: No appreciable central canal or neural foraminal narrowing. T3-T4: No appreciable central canal or neural foraminal narrowing. T4-T5: No appreciable central canal or neural foraminal narrowing. T5-T6: No appreciable central canal or neural foraminal narrowing. T6-T7: No appreciable central canal or neural foraminal narrowing. T7-T8: No appreciable central canal or neural foraminal narrowing. T8-T9: No appreciable central canal or neural foraminal narrowing. T9-T10: No appreciable central canal or neural foraminal narrowing is evident. T10-T11: No appreciable central canal or neural foraminal narrowing is demonstrated. T11-T12: No appreciable central canal or neural foraminal narrowing. T12-L1: No appreciable central canal or neural foraminal narrowing. Additional findings: None. IMPRESSION: 1. Acute superior central endplate compression fracture of L1
[2019-04-25] MEDS ORDERED: Cyclobenzaprine 10 MG TAB ONE (12:59)
== END 2019-04-25 13:58 | disposition home or self-care (01) ==
LOC: ERS 07:37
DX: S32.019A Unspecified fracture of first lumbar vertebra, initial encounter for closed fracture (principal); F41.9 Anxiety disorder, unspecified; F32.9 Major depressive disorder, single episode, unspecified; Z79.899 Other long term (current) drug therapy; W18.30XA Fall on same level, unspecified, initial encounter
CPT/HCPCS: 72100; 72131; 72146

== ENCOUNTER 2019-06-20 15:57 | Outpatient (CLI) | payer BC ==
--- NOTE | 2019-06-20 16:23 | RAD ---
Exam: 2 views lumbar spine HISTORY: Fall. Low back pain Pain. COMPARISON: 04/25/2019 FINDINGS: Interval progression of loss of vertebral body height at L1. L2-L5 demonstrate preservation of vertebral body height. IMPRESSION: Worsening loss of vertebral body height in L1.
== END 2019-06-20 15:58 | disposition home or self-care (01) ==
LOC: TBSIIMAG 15:57
PROVIDERS: ATTEND Neurological Surgery
DX: M54.5 Low back pain (principal)
CPT/HCPCS: 72100

== ENCOUNTER 2019-06-26 12:56 | Outpatient (CLI) | payer BC ==
--- NOTE | 2019-06-26 14:16 | CT ---
CT LUMBAR SPINE WITHOUT CONTRAST: HISTORY: L1 burst fracture. COMPARISON: 04/25/2019 FINDINGS: Images, including the retroperitoneum, show calcification in the arterial structures. A small low den sity lesion of the right adrenal gland is partially visualized and consistent with an adenoma. Compression of the L1 superior endplate is again demonstrated. The loss of height centrally has incre ased slightly, so that the noncompressed portions of the central body is now 0.8 cm where it was 1.3 cm on the prior study. No evidence of retropulsion. Sclerosis has increased slightly. Other vertebral body heights and alignment are maintained. Very mild degenerative changes at the lowe st two levels are present without focal disk herniation or nerve root compression. IMPRESSION: 1. Slight interval worsening of the L1 superior endplate compression. Increasing sclerosis is consist ent with evolution of healing. No retropulsion or other significant change. 2. Atherosclerosis. POS: [facility]
== END 2019-06-26 12:57 | disposition home or self-care (01) ==
LOC: BICCT 12:56
PROVIDERS: ATTEND Nurse Practitioner Family
DX: S32.010A Wedge compression fracture of first lumbar vertebra, initial encounter for closed fracture (principal); I70.90 Unspecified atherosclerosis
CPT/HCPCS: 72131

== ENCOUNTER 2020-07-12 17:14 | Emergency (ER) | payer BC ==
--- NOTE | 2020-07-12 17:55 | RAD ---
PORTABLE CHEST 1 VIEW: Date: 07/12/2020 Time: 1738 hours HISTORY: Stage IV metastatic breast cancer. Increasing fatigue, weakness, and difficulty breathing. COMPARISON: 04/27/2018. FINDINGS: There has been interval removal of the left-sided Port-A-Cath. The heart size is normal. The lungs ar e well expanded without lobar consolidation, pneumothoraces, or pleural effusions. IMPRESSION: No acute process. POS: [facility]
[2020-07-12 18:19] LABS: #Lymphocytes 1.4 thou/uL (1.20-3.40); #Monocytes 0.3 thou/uL (0.11-0.59); #Neutrophils 1.7 thou/uL (1.40-6.50); %Eosinophils 0.9 % (0.0-10.0); %Lymphocytes 39.9 % (21.0-51.0); %Monocytes 7.9 % (0.0-10.0); %Neutrophils 50.3 % (42.0-75.0); Hemoglobin 13.4 g/dL (12.0-16.0); Mean Corpuscular HGB CONC 35.7 g/dL (32.0-36.0); Mean Corpuscular Hemoglobin 34.4 pg (27.0-31.0); Mean Corpuscular Volume 96.5 fL (78.0-98.0); Mean Platelet Volume 9.2 fL (7.4-10.4); Platelet Count 66 thou/uL (130-400); RBC Distribution Width 12.6 % (11.5-14.5); Red Blood Cell (RBC) Count 3.89 mill/uL (4.20-5.40); White Blood Cell (WBC) Count 3.4 thou/uL (4.8-10.8)
[2020-07-12 18:38] LABS: ALT (SGPT) 12 U/L (8-55); AST (SGOT) 11 U/L (5-34); Albumin 4.2 g/dL (3.5-5.0); Alkaline Phosphatase 117 U/L (40-110); Anion Gap 13 mmol/L (10-20); BUN (Urea Nitrogen) 13 mg/dL (9.8-20.1); Bilirubin, Total 0.8 mg/dL (0.2-1.2); Calc. Creatinine Clearance 0 mL/min (70-130); Calcium 8.7 mg/dL (7.8-10.44); Carbon Dioxide 27 mmol/L (22-29); Chloride 107 mmol/L (98-107); Globulin 2.8 g/dL (2.4-3.5); Glucose 140 mg/dL (70-105); Sodium 143 mmol/L (136-145)
== END 2020-07-12 22:09 | disposition home or self-care (01) ==
LOC: ERS 17:14
DX: D70.1 Agranulocytosis secondary to cancer chemotherapy (principal); T45.1X5A Adverse effect of antineoplastic and immunosuppressive drugs, initial encounter; C50.911 Malignant neoplasm of unspecified site of right female breast; R03.0 Elevated blood-pressure reading, without diagnosis of hypertension; R29.700 NIHSS score 0; Z86.711 Personal history of pulmonary embolism
CPT/HCPCS: 36415; 71045; 80053; 84484; 85025; 85379; 93005

== ENCOUNTER 2021-06-02 07:38 | Emergency (ER) | payer BC ==
[2021-06-02] MEDS ORDERED: diphenhydrAMINE 50 MG/ML VIAL ONE (08:58)
[2021-06-02] MEDS ORDERED: Acetaminophen 500 MG TAB ONE (08:58)
[2021-06-02] MEDS ORDERED: Metoclopramide HCl 10 MG/2 ML VIAL ONE (08:58)
[2021-06-02 09:05] LABS: #Lymphocytes 0.4 thou/uL (1.20-3.40); #Monocytes 0.2 thou/uL (0.11-0.59); #Neutrophils 1.7 thou/uL (1.40-6.50); %Basophils 0.8 % (0.0-1.0); %Eosinophils 0.5 % (0.0-10.0); %Lymphocytes 16.9 % (21.0-51.0); %Monocytes 7.2 % (0.0-10.0); %Neutrophils 74.6 % (42.0-75.0); Hemoglobin 12.4 g/dL (12.0-16.0); Mean Corpuscular HGB CONC 35.8 g/dL (32.0-36.0); Mean Corpuscular Hemoglobin 40.6 pg (27.0-31.0); Mean Platelet Volume 7.8 fL (7.4-10.4); Platelet Count 118 thou/uL (130-400); RBC Distribution Width 12.6 % (11.5-14.5); Red Blood Cell (RBC) Count 3.05 mill/uL (4.20-5.40); White Blood Cell (WBC) Count 2.3 thou/uL (4.8-10.8)
[2021-06-02 09:27] LABS: ALT (SGPT) 16 U/L (8-55); AST (SGOT) 16 U/L (5-34); Albumin 3.6 g/dL (3.5-5.0); Alkaline Phosphatase 79 U/L (40-110); Anion Gap 10 mmol/L (10-20); BUN (Urea Nitrogen) 7 mg/dL (9.8-20.1); Bilirubin, Total 0.5 mg/dL (0.2-1.2); Calc. Creatinine Clearance 0 mL/min (70-130); Calcium 8.5 mg/dL (7.8-10.44); Carbon Dioxide 26 mmol/L (22-29); Chloride 103 mmol/L (98-107); Globulin 2.9 g/dL (2.4-3.5); Glucose 156 mg/dL (70-105); Lipase 10 U/L (8-78); Potassium 3.2 mmol/L (3.5-5.1); Protein, Total 6.5 g/dL (6.0-8.3); Sodium 136 mmol/L (136-145)
[2021-06-02 09:39] LABS: Band 13 % (5-11); Eosinophils 3 % (0-10); Lymphocytes 17 % (21-51); MDiff Complete? YES; Macrocytosis SLIGHT = 6-15 cells (100X) (0-5/hpf); Monocytes 12 % (0-10); Neutrophil 53 % (42-75); Platelet Morphology Comment Appears Decreased; Polychromasia SLIGHT = 2-3 cells (100X) (0-2/hpf); Reactive Lymphocytes 2 % (0-10)
[2021-06-02] MEDS ORDERED: Potassium Chloride 20 MEQ TAB ONE (10:39)
== END 2021-06-02 10:50 | disposition home or self-care (01) ==
LOC: ERS 07:38
DX: E87.6 Hypokalemia (principal); R51.9 Headache, unspecified; R11.0 Nausea; Z86.711 Personal history of pulmonary embolism
CPT/HCPCS: 36415; 70450; 80053; 83690; 85025; 93005; 96365; 96375; J1200; J2765

== ENCOUNTER 2021-09-28 06:27 | Emergency (ER) | payer BC ==
[2021-09-28 07:30] LABS: #Lymphocytes 1.9 thou/uL (1.20-3.40); #Monocytes 0.3 thou/uL (0.11-0.59); #Neutrophils 2.9 thou/uL (1.40-6.50); %Basophils 0.6 % (0.0-1.0); %Eosinophils 0.9 % (0.0-10.0); %Lymphocytes 35.9 % (21.0-51.0); %Monocytes 6.3 % (0.0-10.0); %Neutrophils 56.2 % (42.0-75.0); Hemoglobin 13.2 g/dL (12.0-16.0); Mean Corpuscular HGB CONC 35.2 g/dL (32.0-36.0); Mean Corpuscular Hemoglobin 38.3 pg (27.0-31.0); Mean Platelet Volume 8.5 fL (7.4-10.4); Platelet Count 58 thou/uL (130-400); RBC Distribution Width 11.7 % (11.5-14.5); Red Blood Cell (RBC) Count 3.44 mill/uL (4.20-5.40); White Blood Cell (WBC) Count 5.2 thou/uL (4.8-10.8)
[2021-09-28] MEDS ORDERED: Ketorolac Tromethamine 30 MG/ML VIAL ONE (07:32)
[2021-09-28] MEDS ORDERED: Magnesium 2 GM/50 ML BAG (IN WATER) ONE (07:32)
[2021-09-28 07:45] LABS: ALT (SGPT) 16 U/L (8-55); AST (SGOT) 10 U/L (5-34); Albumin 3.7 g/dL (3.5-5.0); Alkaline Phosphatase 80 U/L (40-110); Anion Gap 12 mmol/L (10-20); BUN (Urea Nitrogen) 12 mg/dL (9.8-20.1); Bilirubin, Total 0.4 mg/dL (0.2-1.2); Calc. Creatinine Clearance 0 mL/min (70-130); Calcium 8.2 mg/dL (7.8-10.44); Carbon Dioxide 28 mmol/L (22-29); Chloride 102 mmol/L (98-107); Globulin 2.5 g/dL (2.4-3.5); Glucose 131 mg/dL (70-105); Protein, Total 6.2 g/dL (6.0-8.3); Sodium 139 mmol/L (136-145)
[2021-09-28 07:48] LABS: MDiff Complete? YES; Macrocytosis SLIGHT = 6-15 cells (100X) (0-5/hpf); Platelet Morphology Comment Appears Decreased; Polychromasia SLIGHT = 2-3 cells (100X) (0-2/hpf)
[2021-09-28 07:49] LABS: Potassium 2.9 mmol/L (3.5-5.1)
[2021-09-28] MEDS ORDERED: Potassium Chloride 20 MEQ TAB ONE (07:50)
[2021-09-28] MEDS ORDERED: methylPREDNISolone Sod Succ/PF 125 MG/2 ML VIAL ONE (09:26)
[2021-09-28] MEDS ORDERED: Iopamidol-370 76% 500 ML 1 ML ONE (09:48)
== END 2021-09-28 11:40 | disposition home or self-care (01) ==
LOC: ERS 06:27
DX: J45.909 Unspecified asthma, uncomplicated (principal)
CPT/HCPCS: 36415; 71045; 71260; 80053; 83880; 84484; 85025; 85379; 93005; 96374; 96375; J1885; J2930; J3475; J7620; Q9967

== ENCOUNTER 2022-08-26 17:01 | Emergency (ER) | payer BC ==
[2022-08-26 19:20] LABS: #Eosinphils 0.1 thou/uL (0.0-0.7); #Monocytes 0.5 thou/uL (0.11-0.59); %Basophils 0.5 % (0.0-1.0); %Eosinophils 1.4 % (0.0-10.0); %Lymphocytes 30.2 % (21.0-51.0); %Monocytes 7.8 % (0.0-10.0); %Neutrophils 60.2 % (42.0-75.0); Hemoglobin 11.7 g/dL (12.0-16.0); Mean Corpuscular HGB CONC 35.6 g/dL (32.0-36.0); Mean Corpuscular Hemoglobin 42.3 pg (27.0-31.0); Mean Platelet Volume 8.7 fL (7.4-10.4); Platelet Count 102 10x3/uL (130-400); RBC Distribution Width 12.5 % (11.5-14.5); Red Blood Cell (RBC) Count 2.77 mill/uL (4.20-5.40); White Blood Cell (WBC) Count 6.6 10x3/uL (4.8-10.8)
[2022-08-26 19:37] LABS: ALT (SGPT) 18 U/L (8-55); AST (SGOT) 16 U/L (5-34); Albumin 3.7 g/dL (3.5-5.0); Alkaline Phosphatase 103 U/L (40-110); Anion Gap 13 mmol/L (10-20); BUN (Urea Nitrogen) 11 mg/dL (9.8-20.1); Bilirubin, Total 0.7 mg/dL (0.2-1.2); Calc. Creatinine Clearance 0 mL/min (70-130); Calcium 9.2 mg/dL (7.8-10.44); Carbon Dioxide 26 mmol/L (22-29); Chloride 106 mmol/L (98-107); Estimated GFR 80; Globulin 2.6 g/dL (2.4-3.5); Glucose 118 mg/dL (70-105); Potassium 3.5 mmol/L (3.5-5.1); Protein, Total 6.3 g/dL (6.0-8.3); Sodium 141 mmol/L (136-145)
[2022-08-26 19:38] LABS: MDiff Complete? YES; Macrocytosis MODERATE=16-30 cells (100X) (0-5/hpf); Platelet Morphology Comment Appears Decreased; Polychromasia SLIGHT = 2-3 cells (100X) (0-2/hpf); Stomatocytes SLIGHT = 2-5 cells (100X) (0-1/hpf); Tear Drops SLIGHT = 2-5 cells (100X) (0-1/hpf)
== END 2022-08-26 19:55 | disposition home or self-care (01) ==
LOC: ERS 17:01
DX: I82.462 Acute embolism and thrombosis of left calf muscular vein (principal); Z87.891 Personal history of nicotine dependence
CPT/HCPCS: 36415; 80053; 85025; 96372; J1650

== ENCOUNTER 2022-11-23 14:34 | Emergency (ER) | payer BC ==
[2022-11-23 15:28] LABS: #Eosinphils 0.1 thou/uL (0.0-0.7); #Monocytes 0.3 thou/uL (0.11-0.59); #Neutrophils 4.9 thou/uL (1.40-6.50); %Basophils 0.5 % (0.0-1.0); %Eosinophils 0.8 % (0.0-10.0); %Lymphocytes 15.9 % (21.0-51.0); %Monocytes 5.3 % (0.0-10.0); %Neutrophils 77.2 % (42.0-75.0); Hemoglobin 13.3 g/dL (12.0-16.0); Mean Corpuscular HGB CONC 35.6 g/dL (32.0-36.0); Mean Corpuscular Hemoglobin 39.8 pg (27.0-31.0); Mean Platelet Volume 10.4 fL (7.4-10.4); Platelet Count 124 10x3/uL (130-400); RBC Distribution Width 12.9 % (11.5-14.5); Red Blood Cell (RBC) Count 3.34 mill/uL (4.20-5.40); White Blood Cell (WBC) Count 6.4 10x3/uL (4.8-10.8)
[2022-11-23 15:51] LABS: CellaVision Operator ID LAB.KB; Macrocytosis SLIGHT = 6-15 cells HPF (0-5); Platelet Adequacy Comment Platelets Decreased; Tear Drops SLIGHT = 2-5 cells HPF (0-1)
[2022-11-23 16:08] LABS: ALT (SGPT) 14 U/L (8-55); AST (SGOT) 14 U/L (5-34); Albumin 4.1 g/dL (3.5-5.0); Alkaline Phosphatase 124 U/L (40-110); Anion Gap 15 mmol/L (10-20); BUN (Urea Nitrogen) 11 mg/dL (9.8-20.1); Bilirubin, Total 1.2 mg/dL (0.2-1.2); Calc. Creatinine Clearance 0 mL/min (70-130); Carbon Dioxide 21 mmol/L (22-29); Chloride 107 mmol/L (98-107); Estimated GFR 78; Globulin 2.7 g/dL (2.4-3.5); Glucose 217 mg/dL (70-105); Potassium 3.7 mmol/L (3.5-5.1); Protein, Total 6.8 g/dL (6.0-8.3); Sodium 139 mmol/L (136-145)
[2022-11-23 17:31] LABS: Bacteria/HPF None Seen HPF (None Seen); Bilirubin Negative (Negative); Blood, Urine 2+ (Negative); CAUTI Indications for Culture Alt mental st,lethar; Clarity Clear (Clear); Glucose, Urine (Dipstick) 100 mg/dL (Negative); Ketone, Urine Negative (Negative); Leukocyte 25 Leu/uL (Negative); Nitrite Negative (Negative); Protein, Urine (Dipstick) 20 mg/dL (Neg-Trace); RBC/HPF 0-3 HPF (0-3); Specific Gravity, Urine 1.028 (1.002-1.036); Urobilinogen Normal mg/dL (Less than 2); pH, Urine 5.5 (5.0-9.0)
[2022-11-23 17:33] LABS: Urine Culture Reflex No No
== END 2022-11-23 18:01 | disposition home or self-care (01) ==
LOC: ERS 14:34
DX: E86.0 Dehydration (principal); Z87.891 Personal history of nicotine dependence; Z79.01 Long term (current) use of anticoagulants; Z79.899 Other long term (current) drug therapy
CPT/HCPCS: 36415; 71045; 80053; 81001; 83605; 83880; 84484; 85025; 87040; 93005

== ENCOUNTER 2023-01-04 13:14 | Emergency (ER) | payer BC ==
[2023-01-04] MEDS ORDERED: Orphenadrine Citrate 60 MG/2 ML VIAL ONE (13:55)
[2023-01-04 15:29] LABS: #Eosinphils 0.1 thou/uL (0.0-0.7); #Monocytes 0.4 thou/uL (0.11-0.59); #Neutrophils 3.7 thou/uL (1.40-6.50); %Basophils 0.2 % (0.0-1.0); %Eosinophils 1.3 % (0.0-10.0); %Lymphocytes 20.9 % (21.0-51.0); %Monocytes 6.7 % (0.0-10.0); %Neutrophils 70.5 % (42.0-75.0); Hemoglobin 12.1 g/dL (12.0-16.0); Mean Corpuscular HGB CONC 35.9 g/dL (32.0-36.0); Mean Corpuscular Hemoglobin 39.5 pg (27.0-31.0); Mean Corpuscular Volume 110.1 fl (78.0-98.0); Mean Platelet Volume 10.7 fL (7.4-10.4); Platelet Count 119 10x3/uL (130-400); RBC Distribution Width 13.3 % (11.5-14.5); Red Blood Cell (RBC) Count 3.06 mill/uL (4.20-5.40); White Blood Cell (WBC) Count 5.3 10x3/uL (4.8-10.8)
[2023-01-04] MEDS ORDERED: Morphine 4 MG/ML VIAL ONE (15:48)
[2023-01-04] MEDS ORDERED: Morphine 2 MG/ML VIAL ONE (15:48)
[2023-01-04 16:00] LABS: CellaVision Operator ID LAB.KB; Macrocytosis SLIGHT = 6-15 cells HPF (0-5); Platelet Adequacy Comment Platelets Decreased; Polychromasia SLIGHT = 2-3 cells HPF (0-2); Tear Drops SLIGHT = 2-5 cells HPF (0-1)
[2023-01-04 16:01] LABS: ALT (SGPT) 17 U/L (8-55); AST (SGOT) 18 U/L (5-34); Alkaline Phosphatase 120 U/L (40-110); Anion Gap 14 mmol/L (10-20); BUN (Urea Nitrogen) 10 mg/dL (9.8-20.1); Bilirubin, Total 1.1 mg/dL (0.2-1.2); Calc. Creatinine Clearance 0 mL/min (70-130); Calcium 8.9 mg/dL (7.8-10.44); Carbon Dioxide 26 mmol/L (22-29); Chloride 103 mmol/L (98-107); Estimated GFR 80; Globulin 2.5 g/dL (2.4-3.5); Glucose 176 mg/dL (70-105); Potassium 3.3 mmol/L (3.5-5.1); Protein, Total 6.5 g/dL (6.0-8.3); Sodium 140 mmol/L (136-145)
== END 2023-01-04 16:10 | disposition home or self-care (01) ==
LOC: ERS 13:14
DX: M51.87 Other intervertebral disc disorders, lumbosacral region (principal); N28.1 Cyst of kidney, acquired; Z87.891 Personal history of nicotine dependence
CPT/HCPCS: 36415; 72148; 80053; 85025; 85652; 96372; J2270; J2272; J2360

== ENCOUNTER 2023-02-04 14:53 | Emergency (ER) | payer OTHER, BC ==
[2023-02-04] MEDS ORDERED: Morphine 4 MG/ML VIAL ONE ×2 (16:05→16:06)
[2023-02-04] MEDS ORDERED: Bacitracin 1 PK ONE (16:13)
== END 2023-02-04 16:48 | disposition home or self-care (01) ==
LOC: ERS 14:53
DX: S51.851A Open bite of right forearm, initial encounter (principal); W54.0XXA Bitten by dog, initial encounter; Z87.891 Personal history of nicotine dependence; Z79.899 Other long term (current) drug therapy
CPT/HCPCS: 96372; J2270

== ENCOUNTER 2023-06-02 12:40 | Emergency (ER) | payer OTHER, BC ==
[2023-06-02] MEDS ORDERED: HYDROcodone/Acetaminophen 5/325 mg Tablet ONE (13:15)
[2023-06-02] MEDS ORDERED: Lidocaine 1% w/Epinephrine 1:100K 20 ML VIAL ONE (13:28)
[2023-06-02] MEDS ORDERED: Bacitracin 1 PK ONE (14:16)
== END 2023-06-02 14:27 | disposition home or self-care (01) ==
LOC: ERS 12:40
DX: S41.152A Open bite of left upper arm, initial encounter (principal); S61.451A Open bite of right hand, initial encounter; Z87.891 Personal history of nicotine dependence; W54.0XXA Bitten by dog, initial encounter
CPT/HCPCS: 12005

== ENCOUNTER 2023-07-16 11:34 | Inpatient (IN) | payer BC ==
[~2023-07-16 11:34] MED LIST: Iopamidol-370 76% 500 ML MDV (1 ML CHARGE) ONE
[2023-07-16] MEDS ORDERED: diphenhydrAMINE 50 MG/ML VIAL ONE (11:56)
[2023-07-16] MEDS ORDERED: Ondansetron PF 4 MG/2 ML Vial ONE (11:57)
[2023-07-16] MEDS ORDERED: methylPREDNISolone Sod Succ/PF 125 MG/2 ML VIAL ONE (11:57)
[2023-07-16 12:08] LABS: #Basophils 0.1 thou/uL (0.0-0.2); #Eosinphils 0.1 thou/uL (0.0-0.7); #Monocytes 0.7 thou/uL (0.11-0.59); #Neutrophils 6.9 thou/uL (1.40-6.50); %Basophils 0.6 % (0.0-1.0); %Eosinophils 1.4 % (0.0-10.0); %Lymphocytes 18.5 % (21.0-51.0); %Neutrophils 72.2 % (42.0-75.0); Hematocrit 43.8 % (36.0-47.0); Hemoglobin 15.4 g/dL (12.0-16.0); Mean Corpuscular HGB CONC 35.2 g/dL (32.0-36.0); Mean Corpuscular Hemoglobin 37.4 pg (27.0-31.0); Mean Corpuscular Volume 106.3 fl (78.0-98.0); Mean Platelet Volume 9.6 fL (7.4-10.4); Platelet Count 241 10x3/uL (130-400); RBC Distribution Width 11.4 % (11.5-14.5); Red Blood Cell (RBC) Count 4.12 mill/uL (4.20-5.40); White Blood Cell (WBC) Count 9.5 10x3/uL (4.8-10.8)
[2023-07-16 12:28] LABS: INR-International Normal Ratio 1.3; PTT 28.5 sec (22.9-36.1); Prothrombin Time 15.8 sec (12.0-14.7)
[2023-07-16 12:40] LABS: Troponin I Less than 0.010 ng/mL (< 0.028)
[2023-07-16 12:43] LABS: ALT (SGPT) 12 U/L (8-55); AST (SGOT) 14 U/L (5-34); Albumin 3.6 g/dL (3.5-5.0); Alkaline Phosphatase 83 U/L (40-110); Anion Gap 11 mmol/L (10-20); BUN (Urea Nitrogen) 5 mg/dL (9.8-20.1); Bilirubin, Total 0.7 mg/dL (0.2-1.2); Calc. Creatinine Clearance 0 mL/min (70-130); Calcium 8.7 mg/dL (7.8-10.44); Carbon Dioxide 25 mmol/L (22-29); Chloride 105 mmol/L (98-107); Estimated GFR 91; Glucose 150 mg/dL (70-105); Potassium 3.3 mmol/L (3.5-5.1); Protein, Total 6.6 g/dL (6.0-8.3); Sodium 138 mmol/L (136-145)
[2023-07-16] MEDS ORDERED: Sodium Chloride 0.9% 100 ML ONE (13:01)
[2023-07-16] MEDS ORDERED: Cefepime 2 GM VIAL ONE (13:01)
[2023-07-16] MEDS ORDERED: Acetaminophen 325 MG TAB ONE (18:10)
[2023-07-16] MEDS: Acetaminophen 325 MG TAB PO PRN (18:13)
[2023-07-16] MEDS ORDERED: hydrALAZINE 20 MG/ML VIAL SLOW IVP SCH (18:45)
[2023-07-16] MEDS ORDERED: Labetalol HCl 100 MG/20 ML VIAL ONE (18:58)
[2023-07-16] MEDS: Labetalol HCl 100 MG/20 ML VIAL SLOW IVP SCH (19:05)
[2023-07-16 19:08] VITALS: BMI 39.0
[2023-07-16] MEDS ORDERED: Apixaban 5 MG TAB PO SCH (21:00)
[2023-07-16] MEDS: oxyCODONE 5 MG TAB PO PRN (22:20)
[2023-07-16] MEDS ORDERED: Promethazine 25 MG TAB ONE (23:07)
[2023-07-16] MEDS: Promethazine 25 MG TAB PO SCH (23:10)
[2023-07-16] MEDS: Nicotine 21 MG PATCH TD SCH (23:34)
[2023-07-17] MEDS: Melatonin 3 MG TAB PO SCH (02:49)
[2023-07-17 06:33] LABS: #Monocytes 0.9 thou/uL (0.11-0.59); #Neutrophils 9.8 thou/uL (1.40-6.50); %Basophils 0.1 % (0.0-1.0); %Eosinophils 0.1 % (0.0-10.0); %Lymphocytes 11.8 % (21.0-51.0); %Monocytes 7.6 % (0.0-10.0); Hematocrit 36.6 % (36.0-47.0); Hemoglobin 12.5 g/dL (12.0-16.0); Mean Corpuscular HGB CONC 34.2 g/dL (32.0-36.0); Mean Corpuscular Volume 108.3 fl (78.0-98.0); Mean Platelet Volume 9.9 fL (7.4-10.4); Platelet Count 190 10x3/uL (130-400); RBC Distribution Width 11.5 % (11.5-14.5); Red Blood Cell (RBC) Count 3.38 mill/uL (4.20-5.40); White Blood Cell (WBC) Count 12.2 10x3/uL (4.8-10.8)
[2023-07-17] MEDS ORDERED: Promethazine 25 MG TAB ONE (06:38)
[2023-07-17 06:56] LABS: ALT (SGPT) 12 U/L (8-55); AST (SGOT) 23 U/L (5-34); Albumin 3.5 g/dL (3.5-5.0); Alkaline Phosphatase 72 U/L (40-110); Anion Gap 9 mmol/L (10-20); BUN (Urea Nitrogen) 7 mg/dL (9.8-20.1); Bilirubin, Total 0.5 mg/dL (0.2-1.2); Calc. Creatinine Clearance 125 mL/min (70-130); Carbon Dioxide 26 mmol/L (22-29); Chloride 106 mmol/L (98-107); Estimated GFR 99; Globulin 2.6 g/dL (2.4-3.5); Glucose 140 mg/dL (70-105); Potassium 3.6 mmol/L (3.5-5.1); Protein, Total 6.1 g/dL (6.0-8.3); Sodium 137 mmol/L (136-145)
[2023-07-17] MEDS: Potassium Chloride 20 MEQ TAB PO SCH ×2 (08:23→08:27)
[2023-07-17] MEDS: Sertraline 100 MG TAB PO SCH (08:27)
[2023-07-17] MEDS: Lisinopril 5 MG TAB PO SCH (08:27)
[2023-07-17] MEDS: Bupropion 150 MG SR.TAB PO SCH (08:27)
[2023-07-17] MEDS ORDERED: CEFAZOLIN 2 GM VIAL ONE (09:28)
[2023-07-17] MEDS ORDERED: Sodium Chloride 0.9% 100 ML ONE (09:28)
[2023-07-17] MEDS ORDERED: fentaNYL PF 100 MCG/2 ML SYRINGE ONE (09:39)
[2023-07-17] MEDS ORDERED: Midazolam HCl 2 mg/2 ml Vial ONE (09:39)
[2023-07-17] MEDS ORDERED: PROPOFOL 20 ML ONE (09:39)
[2023-07-17] MEDS ORDERED: Ondansetron PF 4 MG/2 ML Vial ONE (09:39)
[2023-07-17] MEDS ORDERED: Lidocaine 1% PF 5 ML VIAL ONE (09:40)
[2023-07-17] MEDS ORDERED: CEFAZOLIN 2 GM in Sodium Chloride 0.9% 100 ML IVPB SCH (10:00)
[2023-07-17] MEDS ORDERED: fentaNYL 50 mcg/mL 1 mL Vial ONE (10:29)
[2023-07-17] MEDS: FLU VACC QS2023-24(6MOS UP)/PF 60 MCG/0.5 ML SYRINGE IM ONE (11:53)
[2023-07-17] MEDS: fentaNYL 50 mcg/mL 1 mL Vial SLOW IVP PRN (17:22)
[2023-07-18 07:08] LABS: #Eosinphils 0.1 thou/uL (0.0-0.7); #Monocytes 0.8 thou/uL (0.11-0.59); #Neutrophils 6.6 thou/uL (1.40-6.50); %Basophils 0.2 % (0.0-1.0); %Eosinophils 1.2 % (0.0-10.0); %Lymphocytes 16.8 % (21.0-51.0); %Monocytes 8.3 % (0.0-10.0); %Neutrophils 73.2 % (42.0-75.0); Hemoglobin 12.9 g/dL (12.0-16.0); Mean Corpuscular HGB CONC 33.9 g/dL (32.0-36.0); Mean Corpuscular Hemoglobin 37.2 pg (27.0-31.0); Mean Corpuscular Volume 109.5 fl (78.0-98.0); Mean Platelet Volume 9.7 fL (7.4-10.4); Platelet Count 150 10x3/uL (130-400); RBC Distribution Width 11.8 % (11.5-14.5); Red Blood Cell (RBC) Count 3.47 mill/uL (4.20-5.40)
[2023-07-18 07:43] LABS: ALT (SGPT) 15 U/L (8-55); AST (SGOT) 37 U/L (5-34); Alkaline Phosphatase 64 U/L (40-110); Anion Gap 10 mmol/L (10-20); BUN (Urea Nitrogen) 8 mg/dL (9.8-20.1); Bilirubin, Total 0.5 mg/dL (0.2-1.2); Calc. Creatinine Clearance 129 mL/min (70-130); Calcium 8.2 mg/dL (7.8-10.44); Carbon Dioxide 29 mmol/L (22-29); Chloride 105 mmol/L (98-107); Estimated GFR 101; Globulin 2.5 g/dL (2.4-3.5); Glucose 130 mg/dL (70-105); Potassium 3.4 mmol/L (3.5-5.1); Protein, Total 5.5 g/dL (6.0-8.3); Sodium 141 mmol/L (136-145)
[2023-07-18] MEDS: Lisinopril 10 MG TAB PO SCH (08:15)
[2023-07-19 04:43] LABS: #Eosinphils 0.2 thou/uL (0.0-0.7); #Monocytes 0.7 thou/uL (0.11-0.59); #Neutrophils 6.1 thou/uL (1.40-6.50); %Basophils 0.5 % (0.0-1.0); %Eosinophils 2.5 % (0.0-10.0); %Monocytes 8.2 % (0.0-10.0); %Neutrophils 69.3 % (42.0-75.0); Hematocrit 37.9 % (36.0-47.0); Hemoglobin 12.8 g/dL (12.0-16.0); Mean Corpuscular HGB CONC 33.8 g/dL (32.0-36.0); Mean Corpuscular Hemoglobin 36.4 pg (27.0-31.0); Mean Corpuscular Volume 107.7 fl (78.0-98.0); Mean Platelet Volume 9.9 fL (7.4-10.4); Platelet Count 174 10x3/uL (130-400); RBC Distribution Width 11.7 % (11.5-14.5); Red Blood Cell (RBC) Count 3.52 mill/uL (4.20-5.40); White Blood Cell (WBC) Count 8.8 10x3/uL (4.8-10.8)
[2023-07-19 05:44] LABS: ALT (SGPT) 15 U/L (8-55); AST (SGOT) 26 U/L (5-34); Albumin 3.1 g/dL (3.5-5.0); Alkaline Phosphatase 63 U/L (40-110); Anion Gap 9 mmol/L (10-20); BUN (Urea Nitrogen) 8 mg/dL (9.8-20.1); Bilirubin, Total 0.4 mg/dL (0.2-1.2); Calc. Creatinine Clearance 125 mL/min (70-130); Calcium 8.5 mg/dL (7.8-10.44); Carbon Dioxide 27 mmol/L (22-29); Chloride 106 mmol/L (98-107); Estimated GFR 99; Globulin 2.5 g/dL (2.4-3.5); Glucose 155 mg/dL (70-105); Potassium 3.4 mmol/L (3.5-5.1); Protein, Total 5.6 g/dL (6.0-8.3); Sodium 139 mmol/L (136-145)
[2023-07-19 08:03] VITALS: TEMP 98.2
[2023-07-19 08:25] VITALS: BP 176/101
[2023-07-19] MEDS: fentaNYL 50 mcg/mL 1 mL Vial SLOW IVP PRN (08:31)
[2023-07-19] MEDS: Apixaban 5 MG TAB PO SCH (09:57)
[2023-07-19] MEDS: Tramadol Hcl [Tramadol Hcl Er] 200 MG Tab.Er.24h PO SCH (11:21)
== END 2023-07-19 13:11 | disposition home or self-care (01) | DRG 181 ==
LOC: ERS 11:34 → ERHOLD 15:05 → T4-A 07-17 08:10 → OBSVTOIN 07-17 11:56
PROVIDERS: ADMIT Student in an Organized Health Care Education/Training Program; ATTEND Student in an Organized Health Care Education/Training Program
PROC: 0W9930Z Drainage of Right Pleural Cavity with Drainage Device, Percutaneous Approach (ICD-10-PCS; principal; 2023-07-17)
DX: C78.01 Secondary malignant neoplasm of right lung (principal); F33.9 Major depressive disorder, recurrent, unspecified; J91.0 Malignant pleural effusion; C50.919 Malignant neoplasm of unspecified site of unspecified female breast; C78.02 Secondary malignant neoplasm of left lung; E87.6 Hypokalemia; I10 Essential (primary) hypertension; Z90.49 Acquired absence of other specified parts of digestive tract; Z90.89 Acquired absence of other organs; F17.210 Nicotine dependence, cigarettes, uncomplicated; Z88.5 Allergy status to narcotic agent; Z79.01 Long term (current) use of anticoagulants; Z79.899 Other long term (current) drug therapy; Z88.8 Allergy status to other drugs, medicaments and biological substances; J20.9 Acute bronchitis, unspecified
CPT/HCPCS: 36415; 36416; 71045; 71275; 80053; 83605; 83880; 84484; 85025; 85610; 85730; 93005; 94640; 94760; A7048; C1729; J0692; J1200; J2250; J2405; J2704; J2930; J3010; J3490; Q0169; Q9967

== ENCOUNTER 2025-02-28 20:09 | Inpatient (IN) | payer MEDICARE, BC ==
[2025-02-28 23:14] LABS: #Basophils Less than 0.03 10x3/uL (0.0-0.2); #Eosinophils 0.05 10x3/uL (0.0-0.7); #Monocytes 0.33 10x3/uL (0.11-0.59); #Neutrophils 3.27 10x3/uL (1.40-6.50); %Basophils 0.2 % (0.0-1.0); %Eosinophils 1.2 % (0.0-10.0); %Lymphocytes 13.4 % (21.0-51.0); %Monocytes 7.8 % (0.0-10.0); %Neutrophils 76.9 % (42.0-75.0); Hematocrit 27.1 % (36.0-47.0); Hemoglobin 9.0 g/dL (12.0-16.0); Mean Corpuscular Hemoglobin 36.3 pg (27.0-31.0); Mean Corpuscular Volume 109.3 fL (78.0-98.0); Platelet Count 46 10x3/uL (130-400); Red Blood Cell (RBC) Count 2.48 mill/uL (4.20-5.40); White Blood Cell (WBC) Count 4.25 10x3/uL (4.8-10.8)
[2025-02-28 23:22] LABS: ALT (SGPT) 14 U/L (Less than 34); AST (SGOT) 20 U/L (11-34); Albumin 2.9 g/dL (3.1-4.5); Alkaline Phosphatase 118 U/L (40-110); Anion Gap 11 mmol/L (10-20); BUN (Urea Nitrogen) 18 mg/dL (9.8-20.1); Bilirubin, Total 0.4 mg/dL (0.3-1.2); Calc. Creatinine Clearance 0 mL/min (70-130); Calcium 8.1 mg/dL (7.8-10.44); Carbon Dioxide 26 mmol/L (22-29); Chloride 110 mmol/L (98-107); Globulin 2.7 g/dL (2.4-3.5); Glucose 176 mg/dL (70-105); Potassium 3.2 mmol/L (3.5-5.1); Sodium 144 mmol/L (136-145)
[2025-03-01] MEDS ORDERED: Vancomycin 1 GM/200 ML (FROZEN) BAG ONE (00:02)
[2025-03-01] MEDS ORDERED: Acetaminophen 325 MG TAB PO PRN (01:18)
[2025-03-01 03:11] VITALS: BMI 32.4
[2025-03-01] MEDS: Furosemide 20 MG (2 mL) VIAL SLOW IVP SCH (03:25)
[2025-03-01] MEDS ORDERED: oxyCODONE 5 MG TAB PO PRN (04:42)
[2025-03-01] MEDS ORDERED: Lidocaine-Prilocaine 2.5% Cream 5 GM TUBE TOP SCH (04:45)
[2025-03-01 05:39] LABS: ALT (SGPT) 13 U/L (Less than 34); AST (SGOT) 19 U/L (11-34); Albumin 2.9 g/dL (3.1-4.5); Alkaline Phosphatase 119 U/L (40-110); Anion Gap 13 mmol/L (10-20); BUN (Urea Nitrogen) 18 mg/dL (9.8-20.1); Bilirubin, Total 0.6 mg/dL (0.3-1.2); Calc. Creatinine Clearance 0 mL/min (70-130); Calcium 8.0 mg/dL (7.8-10.44); Carbon Dioxide 27 mmol/L (22-29); Chloride 107 mmol/L (98-107); Globulin 2.6 g/dL (2.4-3.5); Glucose 189 mg/dL (70-105); Magnesium 1.7 mg/dL (1.6-2.6); Potassium 3.5 mmol/L (3.5-5.1); Sodium 143 mmol/L (136-145)
[2025-03-01 06:14] LABS: #Basophils Less than 0.03 10x3/uL (0.0-0.2); #Eosinophils 0.07 10x3/uL (0.0-0.7); #Monocytes 0.25 10x3/uL (0.11-0.59); #Neutrophils 3.17 10x3/uL (1.40-6.50); %Basophils 0.5 % (0.0-1.0); %Eosinophils 1.7 % (0.0-10.0); %Lymphocytes 12.2 % (21.0-51.0); %Monocytes 6.2 % (0.0-10.0); %Neutrophils 78.9 % (42.0-75.0); Hematocrit 28.1 % (36.0-47.0); Hemoglobin 9.2 g/dL (12.0-16.0); Mean Corpuscular Hemoglobin 35.8 pg (27.0-31.0); Mean Corpuscular Volume 109.3 fL (78.0-98.0); Platelet Count 44 10x3/uL (130-400); Red Blood Cell (RBC) Count 2.57 mill/uL (4.20-5.40); White Blood Cell (WBC) Count 4.02 10x3/uL (4.8-10.8)
[2025-03-01] MEDS: OLANZapine 5 MG TAB PO SCH (09:42)
[2025-03-01] MEDS: Pantoprazole 40 MG DR.TAB PO SCH (09:42)
[2025-03-01] MEDS: Apixaban 2.5 MG TAB PO SCH (09:42)
[2025-03-01] MEDS: Dicyclomine 10 MG CAP PO SCH (09:42)
[2025-03-01] MEDS: Lisinopril 10 MG TAB PO SCH (09:42)
[2025-03-01] MEDS: Mupirocin 1 GM TUBE NASAL DECOLONIZATION NASAL SCH (20:09)
[2025-03-01] MEDS: Acetaminophen 325 MG TAB PO PRN (20:11)
[2025-03-02 05:37] LABS: #Basophils Less than 0.03 10x3/uL (0.0-0.2); #Eosinophils 0.05 10x3/uL (0.0-0.7); #Monocytes 0.19 10x3/uL (0.11-0.59); #Neutrophils 1.96 10x3/uL (1.40-6.50); %Basophils 0.4 % (0.0-1.0); %Eosinophils 1.9 % (0.0-10.0); %Lymphocytes 14.0 % (21.0-51.0); %Monocytes 7.4 % (0.0-10.0); %Neutrophils 75.9 % (42.0-75.0); Hematocrit 26.4 % (36.0-47.0); Hemoglobin 8.8 g/dL (12.0-16.0); Mean Corpuscular Hemoglobin 36.5 pg (27.0-31.0); Mean Corpuscular Volume 109.5 fL (78.0-98.0); Platelet Count 41 10x3/uL (130-400); Red Blood Cell (RBC) Count 2.41 mill/uL (4.20-5.40); White Blood Cell (WBC) Count 2.58 10x3/uL (4.8-10.8)
[2025-03-02 05:51] LABS: Vancomycin, Random 16.3 ug/mL (See Comment)
[2025-03-02 05:56] LABS: ALT (SGPT) 13 U/L (Less than 34); AST (SGOT) 16 U/L (11-34); Albumin 2.6 g/dL (3.1-4.5); Alkaline Phosphatase 108 U/L (40-110); Anion Gap 10 mmol/L (10-20); BUN (Urea Nitrogen) 13 mg/dL (9.8-20.1); Bilirubin, Total 0.7 mg/dL (0.3-1.2); Calc. Creatinine Clearance 126 mL/min (70-130); Calcium 8.0 mg/dL (7.8-10.44); Carbon Dioxide 26 mmol/L (22-29); Chloride 109 mmol/L (98-107); Globulin 2.6 g/dL (2.4-3.5); Glucose 199 mg/dL (70-105); Potassium 3.6 mmol/L (3.5-5.1); Sodium 141 mmol/L (136-145)
[2025-03-02 08:49] VITALS: BP 138/87; TEMP 98.3
[2025-03-02] MEDS: Non-Formulary Item 1 EACH (Tramadol Hcl [Tramadol Hcl Er] 200 MG Tab.Er.24h) PO SCH (10:00)
[2025-03-02] MEDS ORDERED: Vancomycin 1 GM in Premix 1 BAG IVPB SCH (12:00)
== END 2025-03-02 09:58 | disposition left against medical advice (07) | DRG 602 ==
LOC: ERS 20:09 → MSONC 03-01 01:39 → OBSVTOIN 03-02 08:54
PROVIDERS: ADMIT Student in an Organized Health Care Education/Training Program; ATTEND Student in an Organized Health Care Education/Training Program
DX: L03.113 Cellulitis of right upper limb (principal); D61.810 Antineoplastic chemotherapy induced pancytopenia; J90 Pleural effusion, not elsewhere classified; I10 Essential (primary) hypertension; E87.6 Hypokalemia; F41.9 Anxiety disorder, unspecified; F32.A Depression, unspecified; G47.00 Insomnia, unspecified; Z86.711 Personal history of pulmonary embolism; Z87.891 Personal history of nicotine dependence; Z88.5 Allergy status to narcotic agent; Z88.8 Allergy status to other drugs, medicaments and biological substances; Z98.51 Tubal ligation status; Z86.718 Personal history of other venous thrombosis and embolism; Z98.890 Other specified postprocedural states; Z90.49 Acquired absence of other specified parts of digestive tract; Z90.79 Acquired absence of other genital organ(s); Z90.11 Acquired absence of right breast and nipple; Z92.21 Personal history of antineoplastic chemotherapy; Z79.899 Other long term (current) drug therapy; Z79.01 Long term (current) use of anticoagulants; Z53.29 Procedure and treatment not carried out because of patient's decision for other reasons
CPT/HCPCS: 36415; 71045; 80053; 80202; 83605; 83735; 83880; 84484; 85025; 86141; 93005; 93010; 93306; 96365; 96375; 96376; G0378; J0692; J1940; J3373; J7050; Q0167